=== PATIENT | female | born 1985 ===

== ENCOUNTER 2022-12-19 10:45 | Outpatient (CLI) | payer BC ==
[2022-12-19 15:50] LABS: BILIRUBIN,URINE NEGATIVE (NEGATIVE); GLUCOSE, URINE (UA) NEGATIVE (NEGATIVE); KETONES,URINE (UA) NEGATIVE (NEGATIVE); LEUKOCYTE ESTERASE, URINE NEGATIVE (NEGATIVE); NITRITE,URINE NEGATIVE (NEGATIVE); OCCULT BLOOD,URINE NEGATIVE (NEGATIVE); PH,URINE 6.5 PH (5.0-7.5); PROTEIN,URINE NEGATIVE (NEGATIVE); UROBILINOGEN,URINE 0.2 (NORMAL) E.U./dL (NORMAL)
[2022-12-19 15:51] LABS: CLARITY,URINE CLEAR (CLEAR)
== END 2022-12-19 23:59 | disposition home or self-care (01) ==
LOC: LAB.R 10:45
PROVIDERS: ATTEND Nurse Practitioner
DX: R55 Syncope and collapse (principal)
CPT/HCPCS: 81001; 81003; 87086

== ENCOUNTER 2023-01-06 14:51 | Outpatient (CLI) | payer BC ==
--- NOTE | 2023-01-07 15:15 | Mammography Report ---
BILATERAL DIGITAL SCREENING MAMMOGRAM 3D/2D: 01/06/2023 CLINICAL: Family history of breast cancer. High risk screening. Baseline exam. Routine screening. No prior exams were available for comparison. There are scattered areas of fibroglandular density in both breasts (category b / 25%-50% glandular t issue). No significant masses, calcifications, or other findings are seen in either breast. IMPRESSION: NEGATIVE There is no mammographic evidence of malignancy. A 1 year screening mammogram is recommended. Based on Tyrer-Cuzick model (a risk assessment model), the patient's lifetime risk is 21.9% and her 1 0 year risk is 2.7%. If a patient has an elevated risk, a more comprehensive evaluation should be con sidered and/or a referral to a genetic counselor. The [place] [employer], [employer] [place] [employer], and NCCN Guidelines advise the consideration of Breast MRI as an adjunct to screening mammog carla in patients whose "Lifetime risk to develop breast cancer" is 20% or higher. This exam was interpreted at Station ID: [id number]. NOTE: For mammograms, a report in lay terms will be sent to the patient. Approximately 15% of breast malignancies will not be visualized mammographically. In the management of a palpable breast mass, a negative mammogram must not discourage biopsy of a clinically suspicious lesion. Electronically Signed By: Apolinar espinoza/lakia:01/07/2023 07:48:35 letter sent: No_Letter ACR BI-RADS Category 1: Negative 3341F PARENCHYMAL PATTERN: (A) - The breast(s) demonstrate(s) scattered fibroglandular densities. BI-RADS CATEGORY: (1) - 1 Mammogram [id number] 1 year screening LATERALITY: (B)
== END 2023-01-06 14:52 | disposition home or self-care (01) ==
LOC: DI.N 14:51
PROVIDERS: ATTEND Nurse Practitioner
DX: Z12.31 Encounter for screening mammogram for malignant neoplasm of breast (principal); Z80.3 Family history of malignant neoplasm of breast

== ENCOUNTER 2023-01-09 10:06 | Outpatient (CLI) | payer BC ==
[2023-01-09 17:31] LABS: PT - PROTHROMBIN TIME 11.3 secs (9.9-12.6)
[2023-01-09 17:34] LABS: HCT - HEMATOCRIT 39.3 % (37.0-47.0); HGB - HEMOGLOBIN 12.1 g/dL (12.0-16.0); MEAN CORPUSCULAR HGB CONC 30.8 g/dL (32.0-36.0); MEAN CORPUSCULAR VOLUME 87.7 fL (81.0-99.0); RED BLOOD COUNT 4.48 10^6/uL (4.20-5.40); RED CELL DISTRIBUTION WIDTH 15.5 % (12.0-15.0); WHITE BLOOD COUNT 4.2 x10^3/uL (4.8-10.8)
[2023-01-09 17:42] LABS: PARTIAL THROMBOPLASTIN TIME 29.6 secs (24.9-33.3)
[2023-01-09 18:02] LABS: THYROID STIMULATING HORMONE 1.43 uIU/mL (0.34-5.60)
[2023-01-09 18:07] LABS: FREE T4 (FREE THYROXINE) 0.92 ng/dL (0.58-1.64)
[2023-01-09 18:10] LABS: FERRITIN 5.4 ng/mL (11.0-306.8)
[2023-01-09 18:11] LABS: PROLACTIN 7.25 ng/mL
[2023-01-09 18:13] LABS: FOLATE 21.24 ng/mL (5.90 - >24.8)
[2023-01-09 18:14] LABS: ALBUMIN 3.9 g/dL (3.2-5.5); ALBUMIN/GLOBULIN RATIO 1.1 (1.0-2.2); ALKALINE PHOSPHATASE 53 IU/L (42-121); ALT ALANINE AMINOTRANSFERASE 19 IU/L (10-60); AST ASPARTATE AMINOTRANSFERASE 22 IU/L (10-42); BILIRUBIN,TOTAL 0.6 mg/dL (0.2-1.0); BUN - BLOOD UREA NITROGEN 20 mg/dL (6-20); CALCIUM 8.9 mg/dL (8.5-10.3); CARBON DIOXIDE - CO2 27 mmol/L (21-32); CHLORIDE 108 mmol/L (101-111); CHOL/HDL RATIO 2.8 (<4.4); CHOLESTEROL 186 mg/dL; CREATININE 0.7 mg/dL (0.4-1.0); GFR - MDRD 93 (>89); GLUCOSE 90 mg/dL (70-100); HDL CHOLESTEROL 66 mg/dL; LDL CHOLESTEROL,CALCULATED 111 mg/dL; LDL/HDL RATIO 1.7 (<4.4); SODIUM 139 mmol/L (135-145); TOTAL PROTEIN 7.4 g/dL (6.7-8.2); TRIGLYCERIDES 44 mg/dL; VLDL CHOLESTEROL 9 mg/dL
[2023-01-09 18:30] LABS: FOLLICLE STIMULATING HORMONE 5.14 mIU/mL
[2023-01-09 18:31] LABS: LUTEINIZING HORMONE 3.47 mIU/mL
[2023-01-09 21:02] LABS: ESTIMATED AVERAGE GLUCOSE 114 mg/dL (70-100); HEMOGLOBIN A1c% 5.6 % (4.27-6.07)
[2023-01-10 05:11] LABS: VITAMIN D 25-HYDROXY 31.8 ng/mL (30.0-100.0)
[2023-01-10 06:10] LABS: HIV SCREEN 4TH GENERATION Non Reactive (Non Reactive)
[2023-01-10 07:09] LABS: PROGESTERONE 0.2 ng/mL (.); SEX HORM BINDING GLOB SERUM 47.8 nmol/L (24.6-122.0)
[2023-01-10 20:07] LABS: FREE TESTOSTERONE(DIRECT) 2.2 pg/mL (0.0-4.2)
== END 2023-01-09 10:07 | disposition home or self-care (01) ==
LOC: LAB.N 10:06
PROVIDERS: ATTEND Nurse Practitioner
DX: Z01.83 Encounter for blood typing (principal); N92.0 Excessive and frequent menstruation with regular cycle; R63.5 Abnormal weight gain; Z98.84 Bariatric surgery status; Z11.4 Encounter for screening for human immunodeficiency virus [HIV]; R55 Syncope and collapse
CPT/HCPCS: 36415; 80053; 80061; 82306; 82397; 82627; 82670; 82728; 82746; 83001; 83002; 83036; 83498; 83721; 84144; 84146; 84207; 84270; 84402; 84403; 84425; 84439; 84443; 84630; 85027; 85610; 85730; 86900; 86901; 87389

== ENCOUNTER 2023-02-21 08:00 | Outpatient (CLI) | payer BC ==
[2023-02-21 13:26] LABS: H. PYLORIS ANTIGEN STL NEGATIVE (Negative)
== END 2023-02-21 23:59 | disposition home or self-care (01) ==
LOC: LAB.R 08:00
PROVIDERS: ATTEND Nurse Practitioner
DX: R19.7 Diarrhea, unspecified (principal)
CPT/HCPCS: 87045; 87046; 87177; 87338; 87427; 87493